=== PATIENT | female | born 1945 | race Caucasian/White ===

== ENCOUNTER 2017-01-03 18:31 | Emergency (ER) | payer MEDICARE, BC ==
--- NOTE | ~2017-01-03 | CR133 ---
[facility]. [facility] A Service of [facility] & [facility] RADIOLOGY TEXT RESULTS PATIENT: MEY WERNER LOCATION: SED : 41 UNIT #: [id number] AGE: [address]: REYES SALMON SEX: F ORDER DR: [id number] [place] [id number] E MR#: [id number] Acc #: [id number] NAME: MEY WERNER. : 1945 SEX: F STUDY DATE/TIME: 01/03/2017 20:56 UNIT: SED ROOM: STUDY DESCRIPTION: CR Forearm 2 View Rt Attending Physician: Reyes Salmon Ordering Physician: Reyes Salmon Primary Care Physician: Irina Travis M.D. MEDICAL IMAGING REPORT This report is preliminary unless electronic signature is present. EXAM Right forearm 2 views HISTORY Arm pain after fall today and injury and laceration to arm. FINDINGS 2 views of the right forearm demonstrate normal bone alignment. No fracture, or dislocation. Minimal degenerative changes in the elbow. IMPRESSION 1. No fracture or opaque foreign body. 2. Normal bone alignment. Dictated by... Robb Gutierrez M.D. THIS IS AN ELECTRONICALLY VERIFIED REPORT Robb Gutierrez M.D. at 01/04/2017 11:09 PM BARI/gilda TD: 01/04/2017 00:47 JOB #: [id number] MEDICAL IMAGING REPORT Page 1 of 1
[2017-01-03] MEDS ORDERED: BLOOD PRESSURE (18:48)
[2017-01-03] MEDS ORDERED: SEIZURE (18:48)
[2017-01-03] MEDS ORDERED: ZOLOFT50 MG PO (18:48)
[2017-01-03] MEDS ORDERED: DIURETIC (18:49)
[2017-01-03] MEDS ORDERED: CHOLESTEROL (18:49)
[2017-01-03] MEDS ORDERED: LORTAB 7.5-3251 EACH PO (18:49)
== END 2017-01-03 21:52 | disposition home or self-care (01) ==
LOC: SED 18:31
DX: S51.811A Laceration without foreign body of right forearm, initial encounter (principal); I10 Essential (primary) hypertension; Z23 Encounter for immunization; Z79.899 Other long term (current) drug therapy; Z88.2 Allergy status to sulfonamides; W18.39XA Other fall on same level, initial encounter; Y92.009 Unspecified place in unspecified non-institutional (private) residence as the place of occurrence of the external cause
CPT/HCPCS: 12004; 73090; 90471; 90715; 99283